=== PATIENT | female | born 1965 | race Hispanic/Latino ===

== ENCOUNTER 2020-04-14 06:10 | Day surgery (SDC) | payer BC ==
[~2020-04-14] VITALS: Ht 156.5 cm; Wt 70.0 kg
[2020-04-14] VITALS (15 sets, daily range): BP systolic 107–137; BP diastolic 62–83
[~2020-04-14 06:10] MED LIST: AEC81 PO; ATOR40TA69 PO; LEVO500T89 PO; METO25TA6 PO; NITR0.4T50 SL; SODIUM CHLORIDE 0.9% 500ML 500 ML IV SCH
[2020-04-14 06:47] LABS: APPEARANCE,URINE CLEAR (CLEAR); BILIRUBIN,URINE NEGATIVE (NEGATIVE); COLOR,URINE YELLOW (YELLOW); GLUCOSE, URINE (UA) NEGATIVE (NEGATIVE); KETONES,URINE NEGATIVE (NEGATIVE); LEUKOCYTE ESTERASE ,URINE TRACE (NEGATIVE); NITRATE,URINE NEGATIVE (NEGATIVE); OCCULT BLOOD,URINE NEGATIVE (NEGATIVE); PH,URINE 5.5 (5.0-8.0); PROTEIN,URINE NEGATIVE (NEGATIVE); UROBILINOGEN,URINE 0.2 mg/dL (0.2-1.0)
[2020-04-14 06:53] LABS: BACTERIA,URINE Rare /HPF (None Seen); MUCUS,URINE Moderate LPF (None Seen); RBC,URINE 0-1 /HPF (0-1); SQUAMOUS EPITHELIAL CELL,UR Few /HPF (0-2)
[2020-04-14 06:59] LABS: INR 0.96 (0.85-1.15); PARTIAL THROMBOPLASTIN TIME 26.4 SEC (26.3-35.5); PROTHROMBIN TIME 10.4 SEC (9.6-11.6)
[2020-04-14] MEDS ORDERED: SODIUM CHLORIDE 0.9% 1000ML 1,000 ML IV ONE (07:18)
[2020-04-14] MEDS ORDERED: LIDOCAINE HCL 2% 20ML ONE (07:20)
[2020-04-14] MEDS ORDERED: BIVALIRUDIN 250 MG/VIAL IV ONE (07:20)
[2020-04-14] MEDS ORDERED: NITROGLYCERIN 2 MG/VIAL VIAL IV ONE (07:20)
[2020-04-14] MEDS ORDERED: MIDAZOLAM HCL 1 MG/ML 2ML VIAL ONE (07:20)
[2020-04-14] MEDS ORDERED: IOHEXOL-350 75 ML VIAL IV ONE (07:20)
[2020-04-14] MEDS ORDERED: ASPIRIN 81MG TAB.CHEW ONE (08:12)
[2020-04-14] MEDS ORDERED: TICAGRELOR 90 MG TABLET ONE (08:13)
[2020-04-14] MEDS ORDERED: PRASUGREL HCL 10 MG TABLET ONE (08:15)
[2020-04-14] MEDS ORDERED: ACETAMINOPHEN 325 MG TAB PO PRN (09:00)
[2020-04-14] MEDS ORDERED: SODIUM CHLORIDE 0.9% 1000ML 1,000 ML IV SCH (09:00)
== END 2020-04-14 17:10 | disposition home or self-care (01) ==
LOC: DAH 06:10
PROVIDERS: ATTEND Internal Medicine Cardiovascular Disease
DX: I25.119 Atherosclerotic heart disease of native coronary artery with unspecified angina pectoris (principal); I10 Essential (primary) hypertension; E78.5 Hyperlipidemia, unspecified; Z90.49 Acquired absence of other specified parts of digestive tract; Z98.890 Other specified postprocedural states; R94.31 Abnormal electrocardiogram [ECG] [EKG]; Z98.51 Tubal ligation status; Z79.82 Long term (current) use of aspirin; Z79.899 Other long term (current) drug therapy
CPT/HCPCS: 36415; 81001; 85610; 85730; 87088; 93458; A4215; A4216; A4221; A4222; A4223 ×3; A4606; A4663; C1760; C1769; C1874; C1887; C1894; C9600; J0583; J1644; J2250; J3490 ×2; J7030; Q9967; 99156; 99157

== ENCOUNTER 2021-10-24 06:58 | Observation (INO) | payer BC ==
[2021-10-20 16:31] LABS: BASOPHILS % (AUTO) 0.4 % (0.0-5.0); EOSINOPHILS % (AUTO) 1.5 % (0.0-8.0); HEMATOCRIT 41.6 % (36-48); LYMPHOCYTES % (AUTO) 25.9 % (21.0-51.0); MEAN CORPUSCULAR HEMOGLOBIN 26.5 pg (27.0-33.0); MEAN CORPUSCULAR HGB CONC 32.2 g/dL (32.0-36.0); MEAN CORPUSCULAR VOLUME 82.2 fL (79-99); MONOCYTES % (AUTO) 5.3 % (3.0-13.0); NEUTROPHILS % (AUTO) 66.4 % (40.0-77.0); PLATELET COUNT (AUTO) 238 K/uL (130-400); RED BLOOD CELL COUNT(AUTO) 5.06 MIL/uL (4.00-5.50); RED CELL DISTRIBUTION WIDTH 13.2 % (11.0-15.5); WHITE BLOOD COUNT (AUTO) 8.5 K/uL (4.8-10.8)
[2021-10-20 16:38] LABS: POTASSIUM 3.5 mmol/L (3.5-5.1)
[2021-10-20 16:43] LABS: INR 0.98 (0.85-1.15); PROTHROMBIN TIME 10.7 SEC (9.6-11.6)
[2021-10-20 16:45] LABS: PARTIAL THROMBOPLASTIN TIME 24.6 SEC (26.3-35.5)
[2021-10-23 09:11] VITALS: BP 135/75
[2021-10-24] VITALS (26 sets, daily range): BP systolic 109–137; BP diastolic 58–79
[~2021-10-24] VITALS: Ht 154.9 cm; Wt 75.4 kg
[2021-10-24] MEDS: CEFAZOLIN SODIUM 2 GM VIAL IV SCH ×2 (05:00→12:16)
[~2021-10-24 06:58] MED LIST changes: +ATOR-2 PO; -ATOR40TA69 PO; +EZET10TA48 PO; -LEVO500T89 PO; -SODIUM CHLORIDE 0.9% 500ML 500 ML IV SCH
[2021-10-24] MEDS ORDERED: CEFAZOLIN SODIUM 1 GM VIAL ONE (08:18)
[2021-10-24] MEDS: LACTATED RINGERS 1000ML 1,000 ML IV SCH ×4 (08:18→15:42)
[2021-10-24] MEDS ORDERED: LIDOCAINE PF 100MG/5ML (2%) SYRINGE 5ML ONE (11:29)
[2021-10-24] MEDS ORDERED: ROCURONIUM 10MG/1ML SYR 10 MG/ML ML ONE (11:30)
[2021-10-24] MEDS ORDERED: PROPOFOL 10 MG/ML 20ML VIAL IV ONE (11:30)
[2021-10-24] MEDS ORDERED: DEXAMETHASONE SOD PHOSPHATE 10MG/ML 1ML VIAL ONE (11:30)
[2021-10-24] MEDS ORDERED: MIDAZOLAM HCL 1 MG/ML 2ML VIAL ONE (11:30)
[2021-10-24] MEDS ORDERED: ONDANSETRON 4MG INJ ONE (11:30)
[2021-10-24] MEDS ORDERED: FENTANYL CITRATE PF 50 MCG/1 ML 5ML AMP IV ONE (11:31)
[2021-10-24] MEDS ORDERED: EPHEDRINE SULFATE 50 MG/ML AMPULE ONE (11:33)
[2021-10-24] MEDS ORDERED: PROPOFOL 1000 MG/100 ML 100 ML IV ONE ×2 (11:44→12:54)
[2021-10-24] MEDS ORDERED: TRANEXAMIC ACID 1000MG/10ML ONE (11:51)
[2021-10-24] MEDS ORDERED: KETAMINE 50MG/ML SYRINGE 50 MG/ML DISP.SYRIN IV ONE (12:54)
[2021-10-24] MEDS ORDERED: NITROGLYCERIN 0.4 MG SL TAB SL PRN (14:00)
[2021-10-24] MEDS: ACETAMINOPHEN 500 MG TABLET PO SCH ×2 (14:00→19:50)
[2021-10-24] MEDS ORDERED: MORPHINE 4 MG SYG IVP PRN (14:00)
[2021-10-24] MEDS ORDERED: ONDANSETRON 4MG INJ IVP PRN (14:00)
[2021-10-24] MEDS ORDERED: HYDROCODONE/ACETAMINOPHEN 5/325 MG TAB PO PRN (14:00)
[2021-10-24] MEDS: 0.9%NACL 1000ML 1,000 ML IV SCH (16:04)
[2021-10-24] MEDS: CALDOLOR 800MG+NS 250ML 250 ML IV SCH ×2 (17:06→23:14)
[2021-10-24] MEDS: TRAMADOL HCL 50 MG TABLET PO SCH ×2 (17:15→23:13)
[2021-10-24] MEDS: EZETIMIBE 10 MG TAB PO SCH (19:49)
[2021-10-24] MEDS: METOPROLOL TARTRATE 25 MG TAB PO SCH (19:49)
[2021-10-24] MEDS: FAMOTIDINE 20MG TAB PO SCH (19:49)
[2021-10-24] MEDS: ASPIRIN 81 MG EC TAB PO SCH (19:49)
[2021-10-24] MEDS: CEFAZOLIN SODIUM 1 GM VIAL IVP SCH (19:49)
[2021-10-25] MEDS: CEFAZOLIN SODIUM 1 GM VIAL IVP SCH (02:51)
[2021-10-25 04:31] LABS: HEMATOCRIT 37.5 % (36-48); MEAN CORPUSCULAR HEMOGLOBIN 26.6 pg (27.0-33.0); MEAN CORPUSCULAR HGB CONC 31.7 g/dL (32.0-36.0); MEAN CORPUSCULAR VOLUME 83.9 fL (79-99); RED BLOOD CELL COUNT(AUTO) 4.47 MIL/uL (4.00-5.50); WHITE BLOOD COUNT (AUTO) 14.8 K/uL (4.8-10.8)
[2021-10-25 04:37] VITALS: BP 101/62
[2021-10-25 04:42] LABS: POTASSIUM 4.9 mmol/L (3.5-5.1)
[2021-10-25] MEDS: CEFAZOLIN SODIUM 2 GM VIAL IV SCH (04:51)
[2021-10-25] MEDS: ACETAMINOPHEN 500 MG TABLET PO SCH ×3 (05:12→21:43)
[2021-10-25] MEDS: TRAMADOL HCL 50 MG TABLET PO SCH ×4 (05:12→23:12)
[2021-10-25 08:53] VITALS: BP 108/61
[2021-10-25] MEDS: 0.9%NACL 1000ML 1,000 ML IV SCH ×2 (10:00)
[2021-10-25] MEDS: ASPIRIN 81 MG EC TAB PO SCH ×2 (10:03→19:47)
[2021-10-25] MEDS: POLYETHYLENE GLYCOL 3350 17 GM POWD.PACK PO SCH (10:03)
[2021-10-25] MEDS: FAMOTIDINE 20MG TAB PO SCH (10:04)
[2021-10-25] MEDS: ATORVASTATIN 40 MG TABLET PO SCH (10:04)
[2021-10-25] MEDS: METOPROLOL TARTRATE 25 MG TAB PO SCH ×2 (10:04→19:47)
[2021-10-25] MEDS: HYDROCODONE/ACETAMINOPHEN 10/325 MG TAB PO PRN ×2 (11:26→16:44)
[2021-10-25 11:33] VITALS: BP 110/68
[2021-10-25 15:55] VITALS: BP 107/57
[2021-10-25] MEDS: EZETIMIBE 10 MG TAB PO SCH (19:47)
[2021-10-25 19:53] VITALS: BP 132/63
[2021-10-26 00:09] VITALS: BP 122/72
[2021-10-26 03:43] VITALS: BP 118/62
[2021-10-26] MEDS: LACTATED RINGERS 1000ML 1,000 ML IV SCH (04:19)
[2021-10-26] MEDS: TRAMADOL HCL 50 MG TABLET PO SCH ×2 (05:18→12:41)
[2021-10-26] MEDS: ACETAMINOPHEN 500 MG TABLET PO SCH ×2 (05:19→14:00)
[2021-10-26 07:39] VITALS: BP 122/73
[2021-10-26] MEDS: POLYETHYLENE GLYCOL 3350 17 GM POWD.PACK PO SCH (08:33)
[2021-10-26] MEDS: FAMOTIDINE 20MG TAB PO SCH (08:33)
[2021-10-26] MEDS: ASPIRIN 81 MG EC TAB PO SCH (08:33)
[2021-10-26] MEDS: METOPROLOL TARTRATE 25 MG TAB PO SCH (08:33)
[2021-10-26] MEDS: ATORVASTATIN 40 MG TABLET PO SCH (08:34)
[2021-10-26 11:31] VITALS: BP 116/67
[2021-10-26 17:02] VITALS: BP_SYST 122; BP_SYST 129; BP_DIAS 67; BP_DIAS 76
[2021-10-26] MEDS: HYDROCODONE/ACETAMINOPHEN 10/325 MG TAB PO PRN (17:32)
[2021-10-27] MEDS ORDERED: BISACODYL 10 MG SUPP.RECT RC PRN (14:00)
== END 2021-10-26 21:28 | disposition home or self-care (01) ==
LOC: DAH 06:58 → DAHIP 06:59 → DAH 06:59 → 4BH 15:34
PROVIDERS: ADMIT Orthopaedic Surgery; ATTEND Orthopaedic Surgery
DX: M17.11 Unilateral primary osteoarthritis, right knee (principal); Z20.822 Contact with and (suspected) exposure to COVID-19; M21.061 Valgus deformity, not elsewhere classified, right knee; E66.9 Obesity, unspecified; I10 Essential (primary) hypertension; I25.10 Atherosclerotic heart disease of native coronary artery without angina pectoris; I25.2 Old myocardial infarction; Z79.899 Other long term (current) drug therapy; Z68.30 Body mass index [BMI] 30.0-30.9, adult
CPT/HCPCS: 0055T; 27447; 36415 ×2; 64445; 64447; 76942; 80048 ×2; 85025; 85027; 85610; 85730; 87635; 87641; 96365; 96366 ×2; 96375 ×2; 96376; 97039 ×5; 97116 ×3; 97161; 97530 ×4; A4215; A4221; A4222; A4223; A4600; A4649 ×3; A4663; A4930; A6260; C1776; C9803; G0168; G0378 ×53; J0690 ×3; J1100; J1741; J2001; J2250; J2270; J2405 ×2; J2704 ×3; J3010; J3490 ×3; J7120 ×2